=== PATIENT | male | born 1975 | race Hispanic/Latino ===

== ENCOUNTER 2023-02-10 12:51 | Emergency (ER) | payer OTHER, SELFPAY ==
--- NOTE | ~2023-02-10 | US_ITS ---
US scrotum doppler INDICATION: Testicular pain and swelling TECHNIQUE: Testicular sonogram utilizing grayscale and color Doppler FINDINGS: The testes are normal in size and appearance. No focal lesions are seen. The right testes measures 3.5 x 2.7 x 3.3 cm centimeters, and the left testis measures 3.4 x 2.1 x 3.2 cm cm. There is normal vascular flow to both testes. The right and left epididymides appear normal. There are moderate bilateral hydroceles. IMPRESSION: 1. Moderate bilateral hydroceles. Reviewed, dictated and finalized at location A.
[2023-02-10 12:54] VITALS: BP 128/88; PULSE 86; RESP 18; TEMP 36.6; O2SAT 99
[2023-02-10 14:58] LABS: Appearance Urine Clear (Clear); Bilirubin Urine Negative (Negative); Blood Urine Negative (Negative); Color Urine Yellow (Yellow); Glucose Urine UA Negative (Negative); Ketones Urine Negative (Negative); Leukocyte Esterase Ur Negative LEU/UL (Negative); Nitrate Urine Negative (Negative); Protein Urine Negative (Negative); Urobilinogen Urine 0.2 mg/dL (<2.0)
[2023-02-10 15:06] LABS: Add Urine Microscopic? NO
--- NOTE | 2023-02-10 16:57 | ED.MALEGU ---
HPI - Male Genitourinary General Chief complaint: Urogenital-Male Stated complaint: testicle pain Time Seen by Provider: 02/10/23 14:48 History of Present Illness HPI Narrative: Patient is a 47-year-old male who presents ER with enlarged testicles. The right testicle has getting larger over the last 5 years. He started having pain over the last couple of days that radiates to the top of the pubic region. No urinary frequency urgency or dysuria. No urethral discharge. No concerns for STI. Related Data Allergies Allergy/AdvReac Type Severity Reaction Status Date / Time No Known Allergies Allergy Verified 02/10/23 12:56 Review of Systems Gastrointestinal: Gastrointestinal: Denies abdominal pain, Denies nausea and Denies vomiting Genitourinary: Genitourinary: Denies hematuria, Denies genital lesions, Denies dysuria, Reports testicular pain and Denies urinary frequency PMFSH Past Medical History Medical History (Updated 02/10/23 @ 19:08 by Winston Bae MD) Healthy adult male Exam Narrative: GENERAL: Well-appearing, well-nourished, and in no acute distress. HEAD: Normocephalic, atraumatic. ENT: Mucous membranes moist. : Normal-appearing uncircumcised penis without penile lesion. Enlarged right testicle that is nontender. Nontender left testicle seemingly normal size. EXTREMITIES: Normal range of motion. No edema. SKIN: Warm, dry, no rash. NEURO: Alert and oriented x3. PSYCH: Normal mood and affect. Course Course Emergency Course: Patient educated on diagnosis and treatment plan and need for follow-up. He verbalized understanding. Vital Signs Vital signs: Vital Signs Temperature 98 F 02/10/23 12:54 Pulse Rate 86 02/10/23 12:54 Respiratory Rate 18 02/10/23 12:54 Blood Pressure 128/88 02/10/23 12:54 Pulse Oximetry 99 02/10/23 12:54 Oxygen Delivery Room Air 02/10/23 12:54 Temperature 98 F 02/10/23 12:54 Pulse Rate 86 02/10/23 12:54 Respiratory Rate 18 02/10/23 12:54 Blood Pressure 128/88 02/10/23 12:54 Pulse Oximetry 99 02/10/23 12:54 Oxygen Delivery Room Air 02/10/23 12:54 MDM - Male Genitourinary Lab Data Labs: Lab Results 02/10/23 Range/Units 14:49 Urine Color Yellow (Yellow) Urine Appearance Clear (Clear) Urine pH 6.0 (5.0-9.0) Ur Specific [place] 1.020 (1.001-1.035) Urine Protein Negative (Negative) mg/dL Urine Glucose (UA) Negative (Negative) mg/dL Urine Ketones Negative (Negative) mg/dL Ur Blood (Man) Negative (Negative) Urine Nitrate Negative (Negative) Urine Bilirubin Negative (Negative) Urine Urobilinogen 0.2 (<2.0) mg/dL Leukocyte Esterase Rfl Negative (Negative) MENG/UL Imaging Data Radiologist's impression: ITS Impressions Scrotum Ultrasound 02/10/23 16:11 IMPRESSION: 1. Moderate bilateral hydroceles. Discharge Plan Discharge Clinical Impression: Hydrocele Patient Disposition: Home, Self-Care Condition: Stable Instructions: Hydrocele (ED) Additional Instructions: Return the ER if you have fever over 100.4 ?F, you cannot keep down food or water, you lose consciousness, or you have additional concerns. Follow-up/Referrals: Derik Recinos MD [Physician] - 1 Week Duke Jewell MD [Primary Care Provider] -
== END 2023-02-10 17:09 | disposition home or self-care (01) ==
PROVIDERS: Emergency Provider Emergency Medicine; PCP Emergency Medicine
DX: N43.3 Hydrocele, unspecified (principal)
CPT/HCPCS: 76870; 81003; 93976; 99284

== ENCOUNTER 2023-12-02 14:27 | Emergency (ER) | payer OTHER, SELFPAY ==
[2023-12-02] VITALS (8 sets, daily range): BP systolic 145–163; BP diastolic 92–104; PULSE 71–83; RESP 14–20; TEMP 36.4–36.8; O2SAT 97–100
--- NOTE | ~2023-12-02 | XR_ITS ---
EXAMINATION: XR chest 1V portable DATE: 12/02/2023 18:06 INDICATION: Shortness of breath and possible fever TECHNIQUE: frontal view of the chest was obtained. COMPARISON: None FINDINGS: The lungs are clear with no focal airspace opacities, pulmonary edema, pleural effusion or pneumothor ax. The cardiomediastinal silhouette is normal. Visualized bones and soft tissues are unremarkable. IMPRESSION: 1. No acute cardiopulmonary disease. Reviewed, dictated and finalized at location A.
--- NOTE | 2023-12-02 16:34 | ED.GENADULT ---
HPI - General Adult General Chief complaint: Recheck/Abnormal Lab/Rx <Annette Chadwick APRN - Last Filed: 12/02/23 16:41> Stated complaint: high BP <Annette Chadwick APRN - Last Filed: 12/02/23 16:41> Time Seen by Provider: 12/02/23 16:30 <Annette Chadwick APRN - Last Filed: 12/02/23 16:41> Focused HPI: Pt is a 48-year-old patient who presents to the ER complaining of dizziness and tiredness. He went to his PCP and they advised him to go to the ER. Pt reports he has had high blood pressure before, but is not on any medication. He currently complains of a mild headache, tiredness and thirsty. Pt denies any increase in urination. He reports being told he is diabetic, but is not on medication. GENERAL: Well-appearing, well-nourished, and in no acute distress. CHEST: Clear to auscultation. ?No respiratory distress. HEART: Regular rate and rhythm.? NEURO: ?Alert and oriented x3. Patient screened in triage and initial orders placed.? ?Additional care and disposition to be based upon?diagnostic testing and treatment. 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 Sent by PCP Dr Jewell. He has been feeling tired and dizzy and thirsty. He was short of breath yesterday though he thought it was because he had been outside cutting grass. Denies chest pain. No slurred speech or unilateral symptoms. No decreased/change in urine production. States he had previously been told prediabetic by doctor, believes he might have diabetes now. Not on medications for diabetes or hypertension. No lower extremity edema. He denies any fever but his applied an ointment on him which made him feel cold. No myalgias. A little bit of a cough yesterday and today. <Kim Disla MD - Last Filed: 12/04/23 07:36> Related Data Allergies/adverse reactions: Allergies Allergy/AdvReac Type Severity Reaction Status Date / Time No Known Allergies Allergy Verified 02/10/23 12:56 <Annette Chadwick APRN - Last Filed: 12/02/23 16:41> [facility] Past Medical History Medical History: Medical History (Updated 12/03/23 @ 00:00 by Background Daemon) Healthy adult male <Annette Chadwick APRN - Last Filed: 12/02/23 16:41> Exam Const: General: healthy appearing, no acute distress and alert; No confusion, diaphoretic or ill appearing <Kim Disla MD - Last Filed: 12/04/23 07:36> Nutritional Appearance: well nourished <Kim Disla MD - Last Filed: 12/04/23 07:36> Limitations: language barrier <Kim Disla MD - Last Filed: 12/04/23 07:36> HENMT: Head: normal to inspection, no contusions, no hematomas and no lacerations <Kim Disla MD - Last Filed: 12/04/23 07:36> Face and sinus: normal facial exam <Kim Disla MD - Last Filed: 12/04/23 07:36> Other: gross auditory acuity intact <Kim Disla MD - Last Filed: 12/04/23 07:36> Eyes: Direct Ophthalmoscopy: no photophobia <Kim Disla MD - Last Filed: 12/04/23 07:36> Other: no scleral icterus <Kim Disla MD - Last Filed: 12/04/23 07:36> Neck: Neck: no meningeal signs <Kim Disla MD - Last Filed: 12/04/23 07:36> Chest: Chest palpation & inspection: normal inspection of the chest <Kim Disla MD - Last Filed: 12/04/23 07:36> Resp: Effort & Inspection: normal respiratory effort, not labored, no retractions, not tachypneic and no
--- NOTE | 2023-12-02 16:40 | ECG_ITS ---
Test Date: 2023-12-02 17:40:45 Measurements Intervals [place] Rate: 78 P: 59 TX: 160 QRS: 78 QRSD: 100 T: 1 QT: 357 QTc: 409 Interpretive Statements SINUS RHYTHM No previous ECG available for comparison Electronically Signed On 12-03-2023 14:29:01 CDT by Berta Talbot M.D.
[2023-12-02 17:46] LABS: Basophils Percent Auto 0.5 % (0.2-1.2); Eosinophils Absolute Auto 0.1 K/mm3 (0-0.3); Hematocrit 45.4 % (42.0-52.0); Hemoglobin 15.9 g/dL (14.0-18.0); Immature Granulocyte Absolute 0.02 K/mm3 (0.00-0.031); Immature Granulocyte Percent A 0.2 % (0-0.5); Lymphocytes Absolute Auto 2.34 K/mm3 (0.9-3.2); Lymphocytes Percent Auto 27.8 % (18.3-44.2); Mean Corpuscular Hemoglobin 33.3 pg (26-34); Mean Corpuscular Volume 95.2 fl (80-100); Mean Platelet Volume 10.2 fl (7.4-10.4); Monocytes Absolute Auto 0.5 K/mm3 (0.1-0.6); Monocytes Percent Auto 6.2 % (2.6-8.5); Neutrophils Absolute Auto 5.4 K/mm3 (1.3-6.7); Neutrophils Percent Auto 64.3 % (45.5-73.1); Platelet Count Result 219 k/mm3 (150-375); Red Blood Count 4.77 M/mm3 (4.6-6.20); Red Cell Distribution Width 12.3 % (11.5-14.5); White Blood Count 8.4 K/mm3 (4.5-10.0)
[2023-12-02 17:58] LABS: Alanine Aminotransferase 50 U/L (6-50); Albumin Level 4.8 g/dL (3.5-5.1); Alkaline Phosphatase 58 U/L (38-126); Anion Gap 14 mmol/L (4-12); Aspartate Amino Transferase 43 U/L (17-59); Bilirubin,Total 0.6 mg/dL (0.2-1.3); Blood Urea Nitrogen 16 mg/dL (9-20); Calcium 9.5 mg/dL (8.4-10.2); Carbon Dioxide 24 mmol/L (22-30); Chloride 101 mmol/L (98-107); Estimated CRCL calculation 81 ml/min; Estimated Glomerular Filt Rate > 60; Glucose 117 mg/dL (65-110); Potassium 4.3 mmol/L (3.4-5.0); Sodium 139 mmol/L (137-145)
[2023-12-02 18:36] LABS: NT Pro B Type Natriuretic Pept < 20 pg/mL (19.9-100)
[2023-12-02 18:51] LABS: Add Urine Microscopic? NO; Appearance Urine Clear (Clear); Bilirubin Urine Negative (Negative); Blood Urine Negative (Negative); Color Urine Yellow (Yellow); Glucose Urine UA Negative (Negative); Ketones Urine Negative (Negative); Leukocyte Esterase Ur Negative LEU/UL (Negative); Nitrate Urine Negative (Negative); Protein Urine Negative (Negative); Specific Grav Ur 1.022 (1.001-1.035); Urobilinogen Urine 0.2 mg/dL (<2.0); pH Urine 6.5 (5.0-9.0)
[2023-12-02 19:21] LABS: Influenza A QL RT-PCR Negative (Negative); Influenza B QL RT-PCR Negative (Negative); RSV RNA, RT-PCR Negative (Negative); SARS-CoV-2 RNA PCR Negative (Negative)
[2023-12-02 20:03] LABS: Hemoglobin A1C 6.1 % (<5.7)
== END 2023-12-02 20:31 | disposition home or self-care (01) ==
PROVIDERS: Registered Nurse; Emergency Provider Student in an Organized Health Care Education/Training Program; PCP Emergency Medicine
DX: I10 Essential (primary) hypertension (principal); Z20.822 Contact with and (suspected) exposure to COVID-19
CPT/HCPCS: 36415; 71045; 80053; 81003; 83036; 83880; 85025; 87637; 93005; 99284

== ENCOUNTER 2024-08-11 10:23 | Emergency (ER) | payer OTHER, SELFPAY ==
--- NOTE | ~2024-08-11 | XR_ITS ---
Clinical Indication: Weakness, cough PA and lateral views of the chest: Comparison: 12/02/2023 Findings: The lungs are clear, without evidence of focal consolidation or pleural effusion. Cardiome diastinal silhouette is within normal limits. Bones and soft tissues are unremarkable. Impression: Normal chest. Reviewed, dictated and finalized at [facility]. Impression: Normal chest.
--- NOTE | 2024-08-11 10:30 | ECG_ITS ---
Test Date: 2024-08-11 11:05:31 Measurements Intervals [place] Rate: 81 P: 65 SD: 162 QRS: 67 QRSD: 109 T: 13 QT: 367 QTc: 428 Interpretive Statements SINUS RHYTHM Compared to ECG 12/02/2023 17:40:45 No significant changes Electronically Signed On 08-12-2024 18:58:06 CDT by Chago Silviera
[2024-08-11 10:35] VITALS: BP 143/86; PULSE 88; RESP 18; TEMP 36.6; O2SAT 99
[2024-08-11 11:00] VITALS: BP 135/82; PULSE 80; RESP 16; O2SAT 100
--- NOTE | 2024-08-11 11:07 | ED.WEAKNESS ---
HPI - Weakness General Chief complaint: Weakness Stated complaint: weakness Time Seen by Provider: 08/11/24 10:41 Source: patient Mode of arrival: ambulatory Limitations: no limitations History of Present Illness HPI Narrative: Patient is a 48 y/o male who presents to the ED with c/o weakness. Patient is primarily Arabic speaking. [employer] specialist was utilized for assistance with translation. Patient reports he has been sick for the past 2 weeks with cough and congestion. Has had intermittent production of white sputum. Has had some pain intermittently throughout his left upper back /left upper chest with coughing and movement for the past few days. Has been feeling mildly short of breath. Today be began feeling somewhat weak and lightheaded, which prompted his presentation. Denies dizziness currently. States he just feels weak overall. Denies focal numbness or weakness. Denies fevers. Denies pain or swelling in his legs. States his son has had similar symptoms over the past couple weeks. Had R testicle removed 1 month ago at [facility] for fluid accumulation. Denies being diagnosed with cancer. Related Data Allergies Allergy/AdvReac Type Severity Reaction Status Date / Time No Known Allergies Allergy Verified 02/10/23 12:56 Review of Systems Review of Systems: All systems reviewed & are unremarkable except as noted in HPI. All systems reviewed & are unremarkable except as noted in HPI and below PMFSH Past Medical History Medical History Healthy adult male Surgical History Surgical History History of orchiectomy, unilateral right Exam Narrative: GENERAL: Well appearing, obese with BMI of 32.6, non-toxic, in no acute distress. HEAD: Normocephalic, atraumatic. RESPIRATORY: Airway patent, respirations nonlabored. Clear to auscultation bilaterally, no rales, rhonchi, wheezing. No significant focal lung sounds. CARDIOVASCULAR: Regular rate and rhythm without murmurs, rubs, or gallops. MUSCULOSKELETAL: Moves all extremities. No gross deformities. Mild TTP over L upper anterior lateral chest wall. No significant tenderness throughout L upper back. No midline spinal tenderness. No peripheral edema. SKIN: Warm, dry, normal color. NEURO: A&O X3. Speech clear. Cranial nerves II-XII grossly intact. Steady gait. No ataxic movements. No focal deficits. PSYCHIATRIC: Appropriate mood and affect. Normal interaction. Course Vital Signs Vital signs: Vital Signs Temperature 97.8 F 08/11/24 10:35 Pulse Rate 88 08/11/24 10:35 Respiratory Rate 18 08/11/24 10:35 Blood Pressure 143/86 H 08/11/24 10:35 Pulse Oximetry 99 08/11/24 10:35 Oxygen Delivery Room Air 08/11/24 10:35 Temperature 97.8 F 08/11/24 10:35 Pulse Rate 63 08/11/24 13:26 Respiratory Rate 9 L 08/11/24 13:26 Blood Pressure 130/89 08/11/24 13:26 Pulse Oximetry 97 08/11/24 13:26 Oxygen Delivery Room Air 08/11/24 10:35 MDM - Weakness MDM Narrative Medical decision making narrative: Patient presented to ED with URI symptoms for the past couple weeks, weakness, lightheadedness. Vital signs are stable upon arrival. Orthostatic vital signs were evaluated and patient did have positive increase in heart rate. No significant change in blood pressure. Fluids were initiated. Basic laboratory studies are unremarkable. No leukocytosis or anemia. CMP is unremarkable. Stable kidney function. Stable electrolytes. UA is clear. EKG with sinus rhythm. No concerning ST changes. Trop undetectable. D-dimer within normal range. Chest x-ray is clear. Viral swabs negative. Discussed lab and imaging findings, overall reassuring workup with patient. He is feeling improved after fluids. Discussed likelihood of viral URI, dehydration, viral myalgias. Recommended patient stay very well hydrated at home, continue Tylenol/ibuprofen, hafo-lwu-[id number] cough and cold medicines. Recommended close follow-up with PCP for further evaluation. Given return precautions. Patient in agreement with plan. Feels comfortable going home. Discharged in stable condition. Medical Records Attestation: I reviewed the patient's medical records. Lab Data Attestation: I reviewed the patient's lab results. 08/11/24 11:16 08/11/24 11:16 Labs: Lab Results 08/11/24 08/11/24 Range/Units 11:15 11:16 WBC 5.5 (4.5-10.0) K/mm3 RBC 4.50 L (4.6-6.20) M/mm3 Hgb 14.2 (14.0-18.0) g/dL Hct 42.8 (42.0-52.0) % MCV 95.1 (80-100) fl MCH 31.6 (26-34) pg MCHC 33.2 (32-36) g/dl RDW 12.1 (11.5-14.5) % Plt Count 257 (150-375) k/mm3 MPV 10.3 (7.4-10.4) fl Immature Gran % (Auto) 0.5 (0-0.5) % Neut % (Auto) 52.9 (45.5-73.1) % Lymph % (Auto) 35.5 (18.3-44.2) % [place] % (Auto) 8.0 (2.6-8.5) % Eos % (Auto) 2.6 (0-4.4) % Baso % (Auto) 0.5 (0.2-1.2) % Lymph # (Auto) 1.94 (0.9-3.2) K/mm3 [place] # (Auto) 0.4 (0.1-0.6) K/mm3 Eos # (Auto) 0.1 (0-0.3) K/mm3 Baso # (Auto) 0.0 (0.0-0.1) K/mm3 Abs Immat Gran (auto) 0.03 (0.00-0.031) K/mm3 Absolute Neuts (auto) 2.9 (1.3-6.7) K/mm3 Absolute Nucleated RBC 0.000 (0.0-0.012) K/mm3 Nucleated RBC % 0.0 (0.0-0.2) % D-Dimer < 0.27 (<0.48) ug/mL Sodium 140 (137-145) mmol/L Potassium 3.9 (3.4-5.0) mmol/L Chloride 106 (98-107) mmol/L Carbon Dioxide 24 (22-30) mmol/L Anion Gap 10 (4-12) mmol/L BUN 17 (9-20) mg/dL Creatinine 1.19 (0.7-1.3) mg/dL Estim Creat Clear Calc 80 ml/min Estimated GFR > 60 (59 - ) Glucose 115 H (65-110) mg/dL Calcium 9.5 (8.4-10.2) mg/dL Total Bilirubin 0.5 (0.2-1.3) mg/dL AST 31 (17-59) U/L ALT 38 (6-50) U/L Alkaline Phosphatase 50 (38-126) U/L Troponin I < 0.012 (0.000-0.034) ng/mL Total Protein 8.0 (6.3-8.2) g/dL Albumin 4.9 (3.5-5.1) g/dL Urine Color Yellow (Yellow) Urine Appearance Clear (Clear) Urine pH 7.5 (5.0-9.0) Ur Specific [place] 1.013 (1.001-1.035) Urine Protein Negative (Negative) mg/dL Urine Glucose (UA) Negative (Negative) mg/dL Urine Ketones Negative (Negative) mg/dL Ur Blood (Man) Negative (Negative) Urine Nitrate Negative (Negative) Urine Bilirubin Negative (Negative) Urine Urobilinogen 0.2 (<2.0) mg/dL Leukocyte Esterase Rfl Negative (Negative) MENG/UL Influenza A (RT-PCR) Negative (Negative) Influenza B (RT-PCR) Negative (Negative) RSV (RT-PCR) Negative (Negative) SARS-CoV-2 RNA (RT-PCR) Negative (Negative) Imaging Data Attestation: I personally reviewed and interpreted this imaging study as follows: Radiologist's impression: ITS Impressions Chest X-Ray 08/11/24 11:42 Impression: Normal chest. ECG Data EKG #1: Attestation: I personally reviewed and interpreted this ECG as follows: ECG completion date: 08/11/24 ECG completion time: 11:05 EKG Interpretation: normal rate (81), sinus rhythm and no ST changes Discharge Plan Discharge Clinical Impression: Dehydration, Myalgia Upper respiratory infection Qualifiers: URI type: unspecified URI Qualified Code(s): J06.9 - Acute upper respiratory infection, unspecified Patient Disposition: Home Condition: Stable Instructions: Antibiotic Form, Dehydration (ED), Upper Respiratory Infection (ED), Viral Syndrome (ED) Additional Instructions: Your workup here was reassuring. You likely have a viral upper respiratory infection. Stay well-hydrated at home. Recommend electrolyte rich fluids, Gatorade, Pedialyte, body armor. Utilize Tessalon Perles as needed for cough. Recommend Tylenol and Ibuprofen for discomfort/body aches. Recommend ucak-kjq-otiamfc cough and cold medicines for symptom relief as need, Delsym, Mucinex, DayQuil, NyQuil, Sudafed, Robitussin, TheraFlu. Follow with primary care doctor for further evaluation. Return to the ED if you experience worsening or severe chest pain, difficulty breathing, unable to keep down food or drink, severe pain, pain or swelling in legs, severe dizziness, passing out, or any other symptoms concern. Patient Language: Arabic Prescriptions: New benzonatate 200 mg capsule 200 mg PO TID PRN (Reason: cough) Qty: 15 0RF No Action amlodipine 5 mg tablet 5 mg PO DAILY 30 Days Qty: 30 0RF Follow-up/Referrals: Duke Jewell MD [Primary Care Provider] - Time of Disposition: 14:04
--- OUTSIDE RECORDS SUMMARY | 2024-08-11 11:10 | XMS_ITS | Clinical Summary ---
Author Organization [email or web address] Address [address] [place] [address] Care Team Providers Care Talent Development Analyst Name Role Phone Duke Jewell MD Primary Care Provider [phone] Source Comments [facility],non-owned Affiliates and Associated Physician Practices is amultiple site organization consisting of ambulatory clinics and hospital sitesin [place], [place] and [place]. This disclosure is being madepursuant to the Care Everywhere program and may not contain all information available regarding this patient. Last updated [email or web address] Allergies No known active allergies Medications * Be aware that medications may not be up to date on this document. Alwaysverify current medications with the patient. amLODIPine (Norvasc) 10 MG tablet Take 1 (one) tablet by mouth once daily Active vitamin D, ergocalciferol , (Drisdol) 1.25 MG (58321 UT) capsule Take 1 (one) capsule by mouth every 7 days Active fenofibrate (Tricor) 145 MG tablet Take 1 (one) tablet by mouth once daily Active pravastatin (Pravachol) 40 MG tablet Take 1 (one) tablet by mouth once daily Active terbinafine (LamISIL) 1 % cream APPLY 1 CREAM TOPICALLY ONCE DAILY FOR 28 DAYS 4 Active acetaminophen (Tylenol) 500 MG tablet Take 1 (one) tablet by mouth every 6 hours as needed for Fever or Pain Maximum allowable Acetaminophen amount = 4 Grams (4000 mg) / 24 hours. 15 tablet 5 Active ibuprofen (Motrin) 400 MG tablet Take 1 (one) tablet by mouth every 6 hours as needed for Pain 15 tablet 5 Active oxyCODONE, immediate release, (Roxicodone) 5 MG tabletIndicati ons:Other hydrocele Take 1 (one) tablet by mouth every 6 hours as needed for Pain 4 tablet 5 Active Encounters Date Type Department Care Team Description 06/29/2024 3:00 PM CDT Office Visit [facility] - Urology [address] [place] [address] Denny Gonzalez PA Right hydrocele (Primary Dx); Postop check 06/29/2024 Travel 06/08/2024 1:54 PM MANAGER OF INTERNAL Anesthesia Event [facility] [address] [place] [phone] Mandeep Miranda MD 06/08/2024 12:20 PM MANAGER OF INTERNAL - 06/08/2024 1:58 PM MANAGER OF INTERNAL Surgery [facility] [address] [place] [phone] Chacho Gutierres MD HYDROCELECTOMY 06/08/2024 10:03 AM MANAGER OF INTERNAL - 06/08/2024 5:16 PM MANAGER OF INTERNAL Hospital Encounter [facility] [address] [place] [phone] Chacho Gutierres MD Surgery General Discharge Disposition: Home or Self Care 06/08/2024 Travel 05/30/2024 2:45 PM MANAGER OF INTERNAL Office Visit [facility] - Urology [address] [place] [address] [address] [place] [phone] Chacho Gutierres MD Hydrocele, unspecified hydrocele type (Primary Dx) 05/30/2024 Travel from Last 3 Months Family History Medical History Relation Name Comments Diabetes; unknown type Father High Blood Pressure Father Relation Name Status Comments Father Social History Tobacco Use Types Packs/Day Years Used Date Smoking Tobacco: Never Smokeless Tobacco: Never Tobacco Cessation:Counseling Given: Not Answered Alcohol Use Standard Drinks/Week Comments Yes 0 (1 standard drink = 0.6 oz pur e alcohol) occ Sex and Gender Information Value Date Recorded Sex Assigned at Male 04/28/2024 10:51 AM MANAGER OF INTERNAL Legal Sex Male 10:41 AM CDT Gender Identity Not on file Sexual Orientation Not on file Last Filed Vital Signs Vital Sign Reading Time Taken Comments Blood Pressure 139/105 06/29/2024 3:02 PM CDT he say he dont take bp meds Pulse 86 06/29/2024 3:02 PM CDT Temperature 36.9 C (98.5 F) 06/29/2024 3:02 PM CDT Respiratory Rate 17 06/29/2024 3:02 PM CDT Oxygen Saturation 97% 06/29/2024 3:0 2 PM CDT Inhaled Oxygen Concentration - - Weight 97.5 kg (215 lb) 06/29/2024 3:02 PM CDT Height 175.3 cm (5' 9 ) 06/29/2024 3:02 PM CDT Body Mass Index 31.75 06/29/2024 3:02 PM CDT Plan of Treatment Health Maintenance Due Date Last Done Comments COLOGUARD (AGES 45-75) - COL ON CA SCREENING 1976 COLON MONITORING 1976 COLONOSCOPY - COLON CA SCREENING 1976 CT COLONOGRAPHY - COLON CA SCREENING 1976 Colorectal Cancer Screening 1976 FIT - COLON CA SCREENING 1976 FLEX SIG - COLON CA SCREENING 1976 HIV SCREENING 09/17/1991 HEPATITIS C SCREENING 09/12/1994 DTAP/TDAP/TD VACCINES (1 - Tdap) 09/17/1995 HEPATITIS B VACCINE (1 of 3 - 19+ 3-dose series) 09/17/1995 COVID-19 VACCINE ( - 2023-2 5 season) 2023 DEPRESSION SCREENING 04/13/2024 SCREENING FOR DIABETES 04/28/2024 INFLUENZA VACCINE (Season Ended) 2024 ZOSTER VACCINE (1 of 2) 2026 HIB VACCINE Aged Out No longer eligi ble based on patient's age to complete this topic HPV VACCINE Aged Out No longer eligi ble based on patient's age to complete this topic MENINGOCOCCAL (Group B) VACC INE SHARED DECISION-MAKING Aged Out No longer eligibl e based on patient's age to complete this topic MENINGOCOCCAL GROUPS A/C/Y/W VACCINE Aged Out No longer eligible b ased on patient's age to complete this topic PNEUMOCOCCAL VACCINE Aged Out No long er eligible based on patient's age to complete this topic Procedures Procedure Name Priority Date/Time Associated Diagnosis Comments CARDIAC EKG ORDER 06/11/2024 9:0 4 AM MANAGER OF INTERNAL LARYNGEAL MASK AIRWAY Routine 06/08/2024 2:12 PM MANAGER OF INTERNAL [place] REMOVAL OF HYDROCELE,[place], UNILAT 06/08/2024 1:39 PM MANAGER OF INTERNAL Diagnosis unknown Special Needs NEEDS PILE DRIVER OPERATOR--PRE-TESTING (SCOTTY) NOTIFIED--05/31 KW--TIME CHANGE--PRE-TESTING (MARY) NOTIFIED-06/03 KW from Last 3 Months Results * CARDIAC EKG ORDER (06/11/2024 9:04 AM MANAGER OF INTERNAL) Narrative 06/11/2024 9:04 AM MANAGER OF INTERNAL Ordered by an unspecified provider. Scanned Document CARDIAC SERVICES ORDERABLES Fin al Result * LARYNGEAL MASK AIRWAY (06/08/2024 2:12 PM MANAGER OF INTERNAL) Narrative Callie Broderick APRN-CRNA - 06/08/2024 2:12 PM MANAGER OF INTERNAL Callie Broderick APRN-CRNA 06/08/2024 2:13 PM LMA Placement Procedure/LDA Note: Patient Location: OR. LMA Insertion Date/Time: 06/08/2024 2:01 PM Procedure: LMA Pretreatment: 100% O2 Induction: standard IV Patient position: sniffing. Mask Ventilation: easy Type: LMA Size: 5 Number of Attempts: 1. Placement verified by: bilateral breath sounds, chest auscultation and CO2 monitor Dentition unchanged? Yes Procedure Start Time: 06/08/2024 2:01 PM. Staff Section Anesthesia Provider: Callie Broderick APRN-CRNA, Performed the procedure Mandeep Miranda MD GENERAL ANESTHESIA APOORVA [facility]ANOS Final Result from Last 3 Months Insurance [facility] Care Teams Talent Development Analyst Relationship Specialty Start Date End Date Duke Jewell MD [address] [place] [id number] PCP - General Family Medicine 02/12/23
--- OUTSIDE RECORDS SUMMARY | 2024-08-11 11:10 | XMS_ITS | CONTINUITY OF CARE DOCUMENT ---
Author Name ara katidevora Address Unknown Organization [facility] Address [id number] [place] [address] [address] [place] [address] Phone [phone] Care Team Providers Care Diving Board Assembler Name Role Phone Nate Magana MD Unavailable [phone] LAISHA ROSALES MD Unavailable [phone] LAISHA ROSALES MD Unavailable [phone] PROBLEMS Condition Status Date Provider Notes Hypertension active Verjustin Zamudio CENTRAL SUPPLY NURSE Hyperlipidemia active Pawel Zamudio CENTRAL SUPPLY NURSE Prediabetes active Pawel Zamudio CENTRAL SUPPLY NURSE Vitamin D deficiency active Pawel Solaresreri CENTRAL SUPPLY NURSE Screening active Pawel Zamudio CENTRAL SUPPLY NURSE ENCOUNTERS Date Type Provider Location Encounter Diag nosis - In-person encounter Office Visit Nate Magana MD [facility] HypertensionHyperlipidemiaPrediabetesVit blakely D deficiencyScreening VITAL SIGNS Date Observation Value Provider Body Mass Index (Ratio) 32.93 kg/m2 Mesfin Magana MD blood pressure, diastolic 78 mm[Hg] Sheila foyLogbaylee blood pressure, systolic 126 mm[Hg] Deisy Rodriguez pulse rate 82 /min Estelita Saunders blood pressure, cuff size regular Calvin Saunders blood pressure, diastolic 78 mm[Hg] Calvin Saunders blood pressure, systolic 126 mm[Hg] Tab garland Saunders oxygen saturation, oximetry 97 % Estelita Saunders weight E&M 223 [lb_av] Estelita Saunders height E&M 69 [in_i] Estelita Saunders respiratory rate E&M 12 /min Estelita Saunders ALLERGIES No Known Drug Allergies HISTORY OF MEDICATION USE Medication Status Instructions Dates Provider Indications Com ments Vitamin D2 1,250 mcg (50,000 unit) capsule active Take 1 capsule by mouth once a week 6 Pawel Zamudio NP metformin (Glucophage XR) 500 mg tablet extended release 24 hr active take one tab by mouth daily Estelita Saunders amlodipine 10 mg tablet active TAKE 1 TABLET BY MOUTH EVERY DAY Pawel Zamudio NP fenofibrate nanocrystallized 145 mg tablet active take one tab by mouth daily Estelita Saunders pravastatin 40 mg tablet active Take 1 tablet by mouth once a day Estelita Saunders SOCIAL HISTORY Date Observation Value Provider personal history of marijuana use no Pawel Zamudio NP drug use no Pawel Zamudio NP alcohol use, average drinks per day socia l Pawel Zamudio NP alcohol use yes Pawel Zamudio NP smoking status Never smoker Pawel Kim i, NP INSURANCE PROVIDERS Payer name Policy type / Coverage type Rew red democrat [place] [employer] Medicaid [id number] ADVANCE DIRECTIVES Name Date DISCUSSED - NO DECISION MADE TREATMENT PLAN Date Name Performer :neg por and egf and uacr Nate Magana MD Cardiology: W ill get an echo to assess structure and function w ill get uacr and CT Coronary Calcium Score p robnp nml 12/04 g fr nml 12/04 Pawel Zamudio NP Cardiology: O n Vit D supplements Pawel Zamudio NP Cardiology: A 1c 6.1 (11/2023) O n Metformin. M anaged per PCP Pawel Zamudio NP Cardiology: H is updated medication list for this problem includes: Fenofibrate Nanocrystallized 145 Mg Tablet (Fenofibrate nanocrystallized) ..... Take one tab by mouth daily Pravastatin 40 Mg Tablet (Pravastatin) ..... Take 1 tablet by mouth once a day Pawel Zamudio NP Cardiology: B P controlled in office today B P today: 126/78 Discussed with patient need to monitor BP at home and keep record. D iscussed with patient need to monitor dietary sodium intake His updated medication list for this problem includes: Amlodipine 10 Mg Tablet (Amlodipine) ..... Take 1 tablet by mouth every day Pawel Zamudio NP Date Name Complete Echo Microalb/Creatinine Urine, Random CT, Coronary Calcium Score HISTORY OF PROCEDURES Procedure Date Procedure Name Provider Procedure Notes S tatus EKG Nate Magana MD complete d
[2024-08-11 11:20] VITALS: BP 144/91; BP 148/89; BP 165/91; PULSE 103; PULSE 81; PULSE 82
[2024-08-11 11:33] LABS: Basophils Percent Auto 0.5 % (0.2-1.2); Eosinophils Absolute Auto 0.1 K/mm3 (0-0.3); Eosinophils Percent Auto 2.6 % (0-4.4); Hematocrit 42.8 % (42.0-52.0); Hemoglobin 14.2 g/dL (14.0-18.0); Immature Granulocyte Absolute 0.03 K/mm3 (0.00-0.031); Immature Granulocyte Percent A 0.5 % (0-0.5); Lymphocytes Absolute Auto 1.94 K/mm3 (0.9-3.2); Lymphocytes Percent Auto 35.5 % (18.3-44.2); Mean Corpuscular HGB Conc 33.2 g/dl (32-36); Mean Corpuscular Hemoglobin 31.6 pg (26-34); Mean Corpuscular Volume 95.1 fl (80-100); Mean Platelet Volume 10.3 fl (7.4-10.4); Monocytes Absolute Auto 0.4 K/mm3 (0.1-0.6); Neutrophils Absolute Auto 2.9 K/mm3 (1.3-6.7); Neutrophils Percent Auto 52.9 % (45.5-73.1); Platelet Count Result 257 k/mm3 (150-375); Red Cell Distribution Width 12.1 % (11.5-14.5); White Blood Count 5.5 K/mm3 (4.5-10.0)
[2024-08-11 11:42] LABS: Add Urine Microscopic? NO; Appearance Urine Clear (Clear); Bilirubin Urine Negative (Negative); Blood Urine Negative (Negative); Color Urine Yellow (Yellow); Glucose Urine UA Negative (Negative); Ketones Urine Negative (Negative); Leukocyte Esterase Ur Negative LEU/UL (Negative); Nitrate Urine Negative (Negative); Protein Urine Negative (Negative); Specific Grav Ur 1.013 (1.001-1.035); Urobilinogen Urine 0.2 mg/dL (<2.0); pH Urine 7.5 (5.0-9.0)
--- OUTSIDE RECORDS SUMMARY | 2024-08-11 11:47 | XMS_ITS | Clinical Summary ---
Author Organization [facility] Address [address] [place] [address] Care Team Providers Care Cut Off Sawyer Log Name Role Phone Duke Jewell MD Primary Care Provider [phone] Source Comments [facility],non-owned Affiliates and Associated Physician Practices is amultiple site organization consisting of ambulatory clinics and hospital sitesin [place], [place], [place] and [place]. This disclosure is being madepursuant to the Care Everywhere program and may not contain all information available regarding this patient. Last updated 18.[employer]Database [facility] Allergies No known active allergies Medications * Be aware that medications may not be up to date on this document. Alwaysverify current medications with the patient. amLODIPine (Norvasc) 10 MG tablet Take 1 (one) tablet by mouth once daily Active vitamin D, ergocalciferol , (Drisdol) 1.25 MG (53127 UT) capsule Take 1 (one) capsule by [...] Description 06/29/2024 3:00 PM CDT Office Visit [facility] - U[facility] [address] [place] [address] Denny Gonzalez PA Right hydrocele (Primary Dx); Postop check 06/29/2024 Travel 06/08/2024 1:54 PM COMMERCIAL APPRAISER Anesthesia Event [facility] [address] [place] [id number] Mandeep Miranda MD 06/08/2024 12:20 PM COMMERCIAL APPRAISER - 06/08/2024 1:58 PM COMMERCIAL APPRAISER Surgery [facility] [address] [place] [id number] Chacho Gutierres MD HYDROCELECTOMY 06/08/2024 10:03 AM COMMERCIAL APPRAISER - 06/08/2024 5:16 PM COMMERCIAL APPRAISER Hospital Encounter [facility] [address] [place] [id number] Chacho Gutierres MD Surgery General Discharge Disposition: Home or Self Care 06/08/2024 Travel 05/30/2024 2:45 PM COMMERCIAL APPRAISER Office Visit [facility] - Urology [address] [place] [address] [address] [place] [id number] Chacho Gutierres MD Hydrocele, unspecified hydrocele type [...] Sex Assigned at Male 04/28/2024 10:51 AM COMMERCIAL APPRAISER Legal Sex Male 10:41 AM CDT Gender [...] CARDIAC EKG ORDER 06/11/2024 9:0 4 AM COMMERCIAL APPRAISER LARYNGEAL MASK AIRWAY Routine 06/08/2024 2:12 PM COMMERCIAL APPRAISER DE REMOVAL OF HYDROCELE,TUNICA, UNILAT 06/08/2024 1:39 PM COMMERCIAL APPRAISER Diagnosis unknown Special Needs NEEDS COFFEE TASTER--PRE-TESTING (SCOTTY) NOTIFIED--05/31 KW--TIME CHANGE--PRE-TESTING (MARY) NOTIFIED-06/03 KW from Last 3 Months Results * CARDIAC EKG ORDER (06/11/2024 9:04 AM COMMERCIAL APPRAISER) Narrative 06/11/2024 9:04 AM COMMERCIAL APPRAISER Ordered by an unspecified provider. Scanned Document CARDIAC SERVICES ORDERABLES Fin al Result * LARYNGEAL MASK AIRWAY (06/08/2024 2:12 PM COMMERCIAL APPRAISER) Narrative Callie Broderick APRN-CRNA - 06/08/2024 2:12 PM COMMERCIAL APPRAISER Callie Broderick APRN-CRNA 06/08/2024 2:13 PM LMA [...] Final Result from Last 3 Months Insurance [facility] Care Teams Cut Off Sawyer Log Relationship Specialty Start Date End Date Duke Jewell MD [address] [place] [id number] PCP - General Family Medicine 02/12/23
--- OUTSIDE RECORDS SUMMARY | 2024-08-11 11:47 | XMS_ITS | CONTINUITY OF CARE DOCUMENT ---
Author Name ara katidevora Address Unknown Organization [facility] Address [address] [place] [address] [address] [place] [address] Phone [phone] Care Team Providers Care Weapons Mechanic Name Role Phone Nate Magana MD Unavailable [phone] LAISHA ROSALES MD Unavailable [phone] LAISHA ROSALES MD Unavailable [phone] PROBLEMS Condition Status Date Provider Notes Hypertension active Verjustin Zamudio AEROSPACE PROJECT ENGINEER Hyperlipidemia active Pawel Zamudio AEROSPACE PROJECT ENGINEER Prediabetes active Pawel Zamudio AEROSPACE PROJECT ENGINEER Vitamin D deficiency active Pawel Solaresreri AEROSPACE PROJECT ENGINEER Screening active Pawel Zamudio AEROSPACE PROJECT ENGINEER ENCOUNTERS Date Type Provider Location Encounter Diag nosis - In-person encounter Office Visit Nate Magana MD [facility] HypertensionHyperlipidemiaPrediabetesVit blakely D deficiencyScreening VITAL SIGNS [...] Payer name Policy type / Coverage type [place] red republican ID [employer] MED[employer] Medicaid [id number] ADVANCE DIRECTIVES Name Date DISCUSSED - NO [...]
[2024-08-11 11:51] LABS: D Dimer < 0.27 ug/mL (<0.48)
[2024-08-11 11:53] LABS: Alanine Aminotransferase 38 U/L (6-50); Albumin Level 4.9 g/dL (3.5-5.1); Alkaline Phosphatase 50 U/L (38-126); Anion Gap 10 mmol/L (4-12); Aspartate Amino Transferase 31 U/L (17-59); Bilirubin,Total 0.5 mg/dL (0.2-1.3); Blood Urea Nitrogen 17 mg/dL (9-20); Calcium 9.5 mg/dL (8.4-10.2); Carbon Dioxide 24 mmol/L (22-30); Chloride 106 mmol/L (98-107); Estimated CRCL calculation 80 ml/min; Estimated Glomerular Filt Rate > 60; Glucose 115 mg/dL (65-110); Potassium 3.9 mmol/L (3.4-5.0); Sodium 140 mmol/L (137-145)
[2024-08-11 12:05] LABS: Troponin I < 0.012 ng/mL (0.000-0.034)
[2024-08-11] MEDS: SODIUM CHLORIDE 0.9% IV 1,000 ML 999 ML IV CONT (12:14)
[2024-08-11 12:15] VITALS: BP 130/71; PULSE 77; RESP 16; O2SAT 97
[2024-08-11 12:20] LABS: Influenza A QL RT-PCR Negative (Negative); Influenza B QL RT-PCR Negative (Negative); RSV RNA, RT-PCR Negative (Negative); SARS-CoV-2 RNA PCR Negative (Negative)
[2024-08-11 13:26] VITALS: BP 130/89; PULSE 63; RESP 9; O2SAT 97
== END 2024-08-11 14:32 | disposition home or self-care (01) ==
PROVIDERS: Emergency Medicine; Emergency Provider Physician Assistant; PCP Emergency Medicine
DX: J06.9 Acute upper respiratory infection, unspecified (principal); M79.10 Myalgia, unspecified site; E86.0 Dehydration
CPT/HCPCS: 36415; 71046; 80053; 81003; 84484; 85025; 85380; 87637; 93005; 96360; 99284; J7030

== ENCOUNTER 2024-12-08 12:38 | Emergency (ER) | payer OTHER, SELFPAY ==
--- NOTE | 2024-12-08 12:45 | ED_ITS ---
HPI - General Adult General Chief complaint: Recheck/Abnormal Lab/Rx Stated complaint: High BP Time Seen by Provider: 12/08/24 12:44 Source: patient Mode of arrival: ambulatory Limitations: no limitations History of Present Illness HPI narrative: Patient is a 49-year-old male who presents for medication refill along with red, itchy, watery eyes for 1 week. Patient does work outside daily. Patient has PCP but they are currently on maternity leave in are unable to get in until March. Patient has not ran out of any medications and is taking them as prescribed. Related Data Home Medications ?Medication ?Instructions ?Recorded ?Confirmed ?Last Taken ?Type amlodipine 10 mg tablet mg 12/08/24 Unknown History ergocalciferol (vitamin D2) 1,250 12/08/24 Unknown H istory mcg (50,000 unit) capsule fenofibrate nanocrystallized 145 mg PO 12/08/24 Unkno wn History mg tablet Allergies Allergy/AdvReac Type Severity Reaction Status Date / Time No Known Allergies Allergy Verified 12/08/24 12:53 Review of Systems Review of Systems: All systems reviewed & are unremarkable except as noted in HPI and below Constitutional: Constitutional: Denies body ache(s), Denies chills, Denies fatigue, Denies fever(s), Denies headache(s), Denies malaise and Denies weakness Eyes: Eyes: Denies blurry vision, Reports eye discharge, Reports irritation and Denies loss of vision ENT: Denies otalgia, Denies headache(s), Denies nasal discharge, Denies sinus pain and Denies sore throat Cardiovascular: Cardiovascular: Denies chest pain, Denies irregular heart rhythm and Denies dyspnea Respiratory: Respiratory: Denies dyspnea Gastrointestinal: Gastrointestinal: Denies abdominal pain, Denies melena, Denies hematochezia, Denies diarrhea, Denies nausea and Denies vomiting Musculoskeletal: Musculoskeletal: Denies back pain, Denies myalgias and Denies arthralgias Integumentary/Breasts: Skin/Breast: Denies pruritus and Denies rash Neurologic: Denies headache(s), Denies loss of vision and Denies weakness Psychiatric: Psychiatric: Reports no additional psychiatric complaints Endocrine: Endocrine: Denies fatigue PMFSH Past Medical History Medical History Healthy adult male Surgical History Surgical History History of orchiectomy, unilateral right Comments At time of signature, agree with nursing past medical, surgical, social and family history. There is no relevant family history pertinent to the presenting complaint. Exam Const: General: cooperative, healthy appearing, comfortable, no acute distress and well nourished Nutritional Appearance: well nourished Orientation/consciousness: patient oriented x3 Limitations: no limitations HENMT: Head: normal to inspection, normocephalic and atraumatic Ears: hearing grossly normal bilaterally and external ears normal Face/Nose/Sinus: Normal external nose present, normal facial exam and face symmetric Face and sinus: normal facial exam and face symmetric Mouth: Yes lip normal Eyes: General: appearance normal, both eyes and all related structures Alignment and Position: alignment normal and position normal Periorbital: periorbital findings normal Eyelids: eyelids normal Conjunctivae: conjunctival abnormality bilateral conjunctival injection diffuse; without discharge Sclera: sclerae normal Pupils: Equal, round and reactive pupils present EOM: EOMs intact bilaterally Neck: Neck: normal visual inspection, full ROM and supple Chest: Chest palpation & inspection: normal inspection of the chest Resp: Effort & Inspection: normal respiratory effort and able to speak in complete sentences Auscultation: clear to auscultation bilaterally Cardio: Rate: regular rate Rhythm: regular rhythm Heart sounds: S1 normal heart sound present and S2 normal heart sound present GI: Inspection: normal to inspection Skin: General skin exam: normal color and no rashes or lesions noted Neuro: General: patient oriented x3 and moves all extremities Cranial nerves: Yes Equal, round and reactive pupils present Speech: normal speech Gait exam (Neuro): Normal gait present Extrem: General: normal to inspection, full ROM and no edema Psych: Appearance: grossly normal and well kempt Mental Status: mental status grossly normal Speech and movement: Normal speech and movement present Affect: normal affect Attitude: cooperative Thought process: Normal thought process present Course Course Emergency Course: Patient is aware of diagnosis, understands and agrees to treatment plan. Anticipatory guidance given. Patient agrees to follow-up as directed and is aware of reasons to seek care at the emergency department. Portions of this record may have been created with voice recognition software Level of Care: Express Care Visit Vital Signs Vital signs: Reviewed Medical Decision Making MDM Narrative Medical decision making narrative: Pt well hydrated appearing, in no respiratory distress, hemodynamically stable. Recommend supportive care. The patient is stable at time of discharge the clinical impression was discussed and the patient was given the opportunity to ask questions, which were addressed as completely as possible given the information available at present. Anticipatory guidance and return to care precautions were discussed and the importance of primary care follow-up was stressed and encouraged. The patient voiced understanding of the plan, indicat ions to return, and the need for follow-up. Exam findings show no acute concerns or changes Patient is appropriate for outpatient treatment and follow-up. Differential Diagnosis Differential Diagnosis: Conjunctivitis, well check, medication refill Medical Records Medical records reviewed: Yes I reviewed the external patient's medical records. Vital Signs Vital Signs: Reviewed Discharge Plan Discharge Clinical Impression: Medication refill, Conjunctivitis Patient Disposition: Home Condition: Stable Instructions: Conjunctivitis (ED) Additional Instructions: 1) Please follow-up with your primary care doctor in the next 1-2 months as needed. 2) If you have any worsening of symptoms or any other urgent concerns please go to the ER. 3) Please take medications as prescribed and continue taking your home medications as usual. 4) Please read and follow information included in discharge instructions. Eye drops as prescribed. -Do this for 3 to 4 days until all redness and discharge has disappeared. -Cold compresses to the affected eye for comfort -May need warm compresses to remove debris in the morning -When cleaning the eyes used a washcloth/cotton ball in one direction then change washcloths/cotton ball before using it on another eye. -Do not share medicine--do not touch the eye with the medicine -Alternate or take Tylenol or ibuprofen as directed in the bottle for pain -Avoid screen time--television, computer, tablet or phone. -Practice good handwashing and hygiene to prevent spread of infection Follow-up with PCP or power saw mechanic if condition is not improving in 2-3days. Go to the emergency room if you have pain behind your eye, pressure behind her eye, difficulty seeing, or other severe symptoms 1) Por favor, consulte con katz m?dico de cabecera en los pr?ximos 1-2 meses seg?n sea necesario. 2) Si emely s?ntomas empeoran o tiene alguna otra inquietud urgente, acuda a urgencias. 3) [place] los medicamentos seg?n lo prescrito y contin?e tomando emely medicamentos en casa [place] de costumbre. 4) Por favor, deysi y siga la informaci?n incluida en las instrucciones de natalie. Gotas para los ojos seg?n lo prescrito. - Repita esto brennen 3 o 4 d?as hasta que desaparezca el enrojecimiento y la secreci?n. - Compresas fr?as en el wesley afectado para mayor comodidad. - Podr?a necesitar compresas tibias para eliminar los residuos por la ma?jazlyn. - Al limpiar los ojos, use kavin toallita o bolita de algod?n en kavin direcci?n y luego cambie de toallita o bolita de algod?n antes de usarla en el otro wesley. - No comparta medicamentos; no toque el wesley con el medicamento. - Alterne o tome Tylenol o ibuprofeno seg?n las indicaciones del envase para el dolor. - Evite el tiempo frente a pantallas: televisi?n, computadora, tableta o tel?fono. Practique un buen lavado de shaniqua e higiene para prevenir la propagaci?n de infecciones. Consulte con katz m?dico de cabecera u oftalm?logo si la afecci?n no mejora en 2 o 3 d?as. Acuda a urgencias si presenta dolor o presi?n detr?s del wesley, dificultad para summer u otros s?ntomas graves. Patient Language: Iraqi Prescriptions: New amlodipine 10 mg tablet 10 mg PO DAILY Qty: 90 0RF ergocalciferol (vitamin D2) 1,250 mcg (50,000 unit) capsule 1,250 mcg PO WEEKLY 90 Days Qty: 15 0RF fenofibrate nanocrystallized 145 mg tablet 145 mg PO DAILY Qty: 90 0RF ofloxacin 0.3 % drops See Rx Instructions .ROUTE .COMPLEX Qty: 10 0RF Rx Instructions: put 1-2 drps into each eye every 2-4 h x 2 days, then 1-2 drps 4 times/day days 3-7 No Action amlodipine 10 mg tablet ergocalciferol (vitamin D2) 1,250 mcg (50,000 unit) capsule fenofibrate nanocrystallized 145 mg tablet PO Follow-up/Referrals: Neelam,RAMIN Juarez [Primary Care Provider, Family Practice] - 3 Days Time of Disposition: 13:15
[2024-12-08 12:48] VITALS: BP 135/95; PULSE 72; RESP 18; TEMP 36.7; O2SAT 99
== END 2024-12-08 13:19 | disposition home or self-care (01) ==
PROVIDERS: Emergency Provider Nurse Practitioner Family; PCP Physician Assistant
DX: Z76.0 Encounter for issue of repeat prescription (principal); H10.9 Unspecified conjunctivitis
CPT/HCPCS: 99212; 99213; G0463

== ENCOUNTER 2025-02-21 08:36 | Emergency (ER) | payer OTHER, SELFPAY ==
[2025-02-21 08:47] VITALS: BP 145/98; PULSE 67; RESP 18; TEMP 36.8; O2SAT 99
--- NOTE | 2025-02-21 09:08 | ED.GENADULT ---
HPI - General Adult General Chief complaint: Unspecified Stated complaint: Medicine Refills Time Seen by Provider: 02/21/25 09:08 Source: patient Mode of arrival: ambulatory Limitations: no limitations History of Present Illness HPI narrative: John is a 49 year old female patient presenting to the clinic today requesting medication refills on fenofibrate 145mg po daily, amlodipine 10mg po daily, and Vitamin D 50,000 units/1250mg weekly. States that he has switched providers and does not have an appointment until June 05 2025. Contacted the new PCP and they told him to come to the [facility] for medication refills. He denies any other concerns. Feels well managed on these medications. Patient has history of high blood pressure, high cholesterol, and vitamin D insufficiency Related Data Home Medications ?Medication ?Instructions ?Recorded ?Confirmed ?Last Taken ?Type amlodipine 10 mg tablet mg 12/08/24 Unknown History ergocalciferol (vitamin D2) 1,250 12/08/24 Unknown History mcg (50,000 unit) capsule fenofibrate nanocrystallized 145 mg PO 12/08/24 Unknown History mg tablet Allergies Allergy/AdvReac Type Severity Reaction Status Date / Time No Known Allergies Allergy Verified 02/21/25 08:52 Review of Systems Review of Systems: Pertinent positives per HPI. Patient denies any fever, chills, rash, headache, visual changes, dizziness, cough, runny nose, sore throat, shortness of breath, chest pain, palpitations, nausea, vomiting, diarrhea, constipation, abdominal pain, or any urinary issues. PMFSH Past Medical History Medical History Healthy adult male Surgical History Surgical History History of orchiectomy, unilateral right Comments At the time of my signature, I reviewed and agree with the nursing past medical, surgical, social, and family history. There is no relevant family history pertinent to the patient complaint. Exam Narrative: General: Well-developed, well nourished, in no apparent distress Head: Normocephalic, atraumatic Eyes: Pupils equally round and reactive to light bilaterally, EOM intact, sclera and conjunctive clear, no discharge, lids normal Ears: TMs intact and clear, ear canals clear, no drainage, grossly hearing normal. Nose: Nares patent, no discharge, no inflammation, no sinus tenderness. Mouth: Oropharynx without lesions or masses, good dentition, MMM. Neck: Supple, trachea midline, no enlargement of anterior or posterior cervical nodes, no thyroid masses or goiter palpable. Cardio: Regular rate and rhythm, s1 and s2 normal, no murmur appreciated. Resp: Clear to auscultation bilaterally anteriorly and posteriorly, no rhonchi, rales, wheezing or rubs Course Course Emergency Course: Portions of this record may have been created with voice recognition software. Level of Care: Express Care Visit Vital Signs Vital signs: Vital Signs Temperature 36.8 C 02/21/25 08:47 Pulse Rate 67 02/21/25 08:47 Respiratory Rate 18 02/21/25 08:47 Blood Pressure 145/98 H 02/21/25 08:47 Pulse Oximetry 99 02/21/25 08:47 Oxygen Delivery Room Air 02/21/25 08:47 Temperature 36.8 C 02/21/25 08:47 Pulse Rate 67 02/21/25 08:47 Respiratory Rate 18 02/21/25 08:47 Blood Pressure 145/98 H 02/21/25 08:47 Pulse Oximetry 99 02/21/25 08:47 Oxygen Delivery Room Air 02/21/25 08:47 Vital signs reviewed Medical Decision Making MDM Narrative Medical decision making narrative: At the time of visit patient is resting comfortably on the exam table. Patient appears to be nontoxic. John is a 49 year old female patient presenting to the clinic today requesting medication refills on fenofibrate 145mg po daily, amlodipine 10mg po daily, and Vitamin D 50,000 units/1250mg weekly. States that he has switched providers and does not have an appointment until June 05 2025. Contacted the new PCP and they told him [facility]. He denies any other concerns. Feels well managed on these medications. Plan: Medication refills were sent in for the above medications. Supportive measures were discussed with the patient and they voiced understanding discharge instructions and agrees to treatment plan. Return precautions reviewed Differential Diagnosis Differential Diagnosis: Encounter for medication refill Vital Signs Vital Signs: Vital Signs Temperature 36.8 C 02/21/25 08:47 Pulse Rate 67 02/21/25 08:47 Respiratory Rate 18 02/21/25 08:47 Blood Pressure 145/98 H 02/21/25 08:47 Pulse Oximetry 99 02/21/25 08:47 Oxygen Delivery Room Air 02/21/25 08:47 Temperature 36.8 C 02/21/25 08:47 Pulse Rate 67 02/21/25 08:47 Respiratory Rate 18 02/21/25 08:47 Blood Pressure 145/98 H 02/21/25 08:47 Pulse Oximetry 99 02/21/25 08:47 Oxygen Delivery Room Air 02/21/25 08:47 Discharge Plan Discharge Clinical Impression: Medication refill Patient Disposition: Home Condition: Stable Instructions: Antibiotic Form, Medicine Refill (ED) Additional Instructions: Take medications as prescribed Follow-up with your primary care doctor as scheduled. [place] los medicamentos seg?n lo prescrito. Acuda a las citas de seguimiento con katz m?dico de cabecera seg?n lo programado. Patient Language: Iranian Prescriptions: New amlodipine 10 mg tablet 10 mg PO DAILY 30 Days Qty: 30 3RF fenofibrate nanocrystallized 145 mg tablet 145 mg PO DAILY 30 Days Qty: 30 3RF cholecalciferol (vitamin D3) 1,250 mcg (50,000 unit) capsule 1,250 mcg PO WEEKLY 28 Days Qty: 4 3RF No Action amlodipine 10 mg tablet ergocalciferol (vitamin D2) 1,250 mcg (50,000 unit) capsule fenofibrate nanocrystallized 145 mg tablet PO amlodipine 10 mg tablet 10 mg PO DAILY Qty: 90 0RF ergocalciferol (vitamin D2) 1,250 mcg (50,000 unit) capsule 1,250 mcg PO WEEKLY 90 Days Qty: 15 0RF fenofibrate nanocrystallized 145 mg tablet 145 mg PO DAILY Qty: 90 0RF ofloxacin 0.3 % drops See Rx Instructions .ROUTE .COMPLEX Qty: 10 0RF Rx Instructions: put 1-2 drps into each eye every 2-4 h x 2 days, then 1-2 drps 4 times/day days 3-7 Follow-up/Referrals: PHYSICIAN,PRIMARY CARE COORDINATOR [Primary Care Provider, Internal Medicine] Time of Disposition: 09:11 Quality NIHSS Nursing Documentation ED NIHSS nursing documentation: reviewed/agree
== END 2025-02-21 09:20 | disposition home or self-care (01) ==
PROVIDERS: Emergency Provider Nurse Practitioner Family
DX: Z76.0 Encounter for issue of repeat prescription (principal); I10 Essential (primary) hypertension; E78.00 Pure hypercholesterolemia, unspecified; E55.9 Vitamin D deficiency, unspecified
CPT/HCPCS: 99211; 99213; G0463